=== PATIENT | female | born 1940 | race Caucasian/White ===

== ENCOUNTER → 2017-04-26 | Outpatient (CLI) | payer OTHER, MEDICARE ==
[~2017-04-26] MED LIST: GADOBUTROL 10 ML VIAL IVP ONE
[2017-04-26 11:31] LABS: CREATININE 0.8 mg/dL (0.6-1.0); GLOMERULAR FILTRATION RATE > 60
== END ==
LOC: FIMAGING 09:52
PROVIDERS: ATTEND Family Medicine
DX: R42 Dizziness and giddiness (principal); R55 Syncope and collapse; R41.82 Altered mental status, unspecified
CPT/HCPCS: 70544; 70549; A9585

== ENCOUNTER → 2017-05-04 | Outpatient (CLI) | payer OTHER, MEDICARE | LOC: FIMAGING 09:36 | PROVIDERS: ATTEND Family Medicine | DX: N95.0 Postmenopausal bleeding (principal); R93.8 Abnormal findings on diagnostic imaging of other specified body structures ==

== ENCOUNTER → 2017-08-17 | Outpatient (CLI) | payer OTHER, MEDICARE | LOC: FIMAGING 10:37 | PROVIDERS: ATTEND Family Medicine | DX: Z12.31 Encounter for screening mammogram for malignant neoplasm of breast (principal); Z80.3 Family history of malignant neoplasm of breast | CPT/HCPCS: G0202 ==

== ENCOUNTER → 2017-12-04 | Outpatient (CLI) | payer MEDICARE, OTHER | LOC: FIMAGING 09:39 | PROVIDERS: ATTEND Physician Assistant | DX: Z13.820 Encounter for screening for osteoporosis (principal); M81.0 Age-related osteoporosis without current pathological fracture; D70.9 Neutropenia, unspecified; E16.2 Hypoglycemia, unspecified; E78.5 Hyperlipidemia, unspecified ==

== ENCOUNTER → 2018-08-23 | Outpatient (CLI) | payer OTHER | LOC: FIMAGING 09:56 | PROVIDERS: ATTEND Family Medicine | DX: Z12.31 Encounter for screening mammogram for malignant neoplasm of breast (principal); Z80.3 Family history of malignant neoplasm of breast ==

== ENCOUNTER → 2019-05-09 | Outpatient (CLI) | payer OTHER, MEDICARE | LOC: FIMAGING 16:37 ==